=== PATIENT | female | born 1975 | race Asian ===

== ENCOUNTER 2022-05-06 13:22 | Outpatient (CLI) | payer BC | END 2022-05-06 13:23 | disposition home or self-care (01) | LOC: CSHMRI 13:22 | PROVIDERS: ATTEND Otolaryngology Plastic Surgery within the Head & Neck | DX: H90.42 Sensorineural hearing loss, unilateral, left ear, with unrestricted hearing on the contralateral side (principal); H93.12 Tinnitus, left ear; H83.8X2 Other specified diseases of left inner ear | CPT/HCPCS: 70553 ==

== ENCOUNTER 2023-10-05 13:24 | Outpatient (CLI) | payer BC, OTHER, SELFPAY | END 2023-10-05 13:25 | disposition home or self-care (01) | LOC: CSHMRI 13:24 | PROVIDERS: ATTEND Otolaryngology Plastic Surgery within the Head & Neck | DX: D33.3 Benign neoplasm of cranial nerves (principal); H61.892 Other specified disorders of left external ear | CPT/HCPCS: 70553 ==